=== PATIENT | female | born 1980 | race Caucasian/White ===

== ENCOUNTER → 2017-12-02 15:46 | Outpatient (CLI) | payer MEDICAID ==
[2014-05-25 23:27] VITALS: BMI 29.2
[~2017-12-02 15:46] MED LIST: HYDROCODON-ACE1 EAC7 PO; ZOFRAN ODT4 MG/UDTAB PO; [UNRECOGNIZED DRUG - OTHER]
== END | disposition home or self-care (01) ==
LOC: D.MAMMO 13:30
DX: N64.4 Mastodynia (principal); R22.2 Localized swelling, mass and lump, trunk